=== PATIENT | female | born 1945 | race Caucasian/White ===

== ENCOUNTER 2024-09-28 06:29 | Emergency (ER) | payer OTHER ==
[~2024-09-28] VITALS: Ht 160 cm; Wt 72.7 kg
--- NOTE | 2024-09-28 07:12 | ED.PDOC ---
Teresat. trauma (HPI) HPI Comments 78 y.o female with PMHx of Dementia, HLD and AFIB, presents to the ED via EMS s/p mechanical slip and fall coming out of the restroom this morning. Patient landed on her buttocks, with more pressure leaning to her right hip. EMS reports patient was unable to bear weight to right leg and has positive shortening to tight leg. Patient is alert and oriented to self and others which is her baseline. Chief Complaint: Fall Injury Time Seen by MD: 06:43 Reviewed notes: Nurses Notes, Commercial Maintenance Technician Notes, Medications, Allergies Allergies: Coded Allergies: NO KNOWN ALLERGIES (Unverified , 09/09/13) Information Source: Emergency Med Personnel Mode of Arrival: EMS Severity: Moderate Timing: Hours Duration: Since onset Location: (R) Hip Location of laceration: None Mechanism: Fall Associated signs and symtoms: Other Past Medical History PAST MEDICAL HISTORY: AFIB, Arthritis, CHF, Dementia Surgical History: Denies all surgeries STANDARDS ANALYST History: No Pertinent STANDARDS ANALYST History Family History Family History: Unknown Social History Smoker: Non-Smoker Alcohol: Denies ETOH Use Drugs: Denies Drug Use Lives In: Home Unable to Obtain due to: Dementia Physical Exam General Appearance: Moderate Distress HEENT: Normal ENT Inspection, Pharynx Normal, TMs Normal Neck: Full Range of Motion, Non-Tender, Normal, Normal Inspection Respiratory: Chest Non-Tender, Lungs Clear, No Accessory Muscle Use, No Respiratory Distress, Normal Breath Sounds Cardiovascular: Irregular, No Edema, No JVD, No Murmur, No Gallop, Normal Peripheral Pulses Breast Exam: Deferred Gastrointestinal: No Organomegaly, Non Tender, No Pulsatile Mass, Normal Bowel Sounds, Soft Genitalia: Deferred Pelvic: Deferred Rectal: Deferred Extremities: Decreased range of motion (Bilateral right extremity) Musculoskeletal : Apperance: Normal Neurologic: Alert (Baseline) Cerebellar Function: NOT DONE Reflexes: NOT DONE Skin: Normal Color Peripheral Pulses: 3+ Radial (R), 3+ Radial (L) Lymphatic: No Adenopathy Was a procedure done? Was a procedure done?: No Differential Diagnosis Multiple Trauma: Fractures, Contusion X-Ray, Labs, Meds, VS Vital Signs Date Time Temp Pulse Resp B/P (MAP) Pulse Ox O2 Delivery O2 Flow Rate FiO2 09/28/24 16:12 98.0 94 16 98/51 (67) 94 98.0 09/28/24 15:20 103 18 108/68 09/28/24 13:38 101 16 120/60 09/28/24 10:01 86 16 120/66 09/28/24 09:10 85 18 143/72 09/28/24 08:58 98.1 85 18 143/72 (95) 95 98.1 09/28/24 08:58 85 18 95 Room Air* 0 21 09/28/24 06:37 95 09/28/24 06:33 98.2 100 18 128/80 (96) 98 Lab Test 09/28/24 08:30 09/28/24 07:43 Range/Units Urine Color Light-yellow Yellow Urine Clarity Clear Clear Urine pH 5.5 5.0-9.0 Urine Specific [place] 1.007 1.001-1.035 Urine Protein Negative Negative Urine Ketones Negative Negative Urine Blood Negative Negative /uL Urine Nitrite Negative Negative Urine Bilirubin Negative Negative Urine Urobilinogen Normal Negative mg/dL Urine Leukocyte Esterase Negative Negative /uL Urine RBC <1 0 - 4 /hpf Urine WBC <1 0 - 5 /hpf Urine Squamous Epithelial Cells None seen <5 /hpf Urine Bacteria None seen None Seen /hpf Urine Glucose Normal Normal mg/dL White Blood Count 10.1 4.4-10.8 10^3/uL Red Blood Count 4.40 4.0-5.20 10^6/uL Hemoglobin 13.8 12.2-16.2 g/dL Hematocrit 41.2 36.0-46.0 % Mean Corpuscular Volume 93.7 80.0-100.0 fL Mean Corpuscular Hemoglobin 31.5 28.0-32.0 pg Mean Corpuscular Hemoglobin Concent 33.6 32.0-36.0 g/dL Red Cell Distribution Width 13.3 11.8-14.3 % Platelet Count 316 140-450 10^3/uL Mean Platelet Volume 7.0 6.9-10.8 fL Neutrophils (%) (Auto) 76.3 37.0-80.0 % Lymphocytes (%) (Auto) 16.8 10.0-50.0 % Monocytes (%) (Auto) 5.9 0.0-12.0 % Eosinophils (%) (Auto) 0.7 0.0-7.0 % Basophils (%) (Auto) 0.3 0.0-2.0 % Neutrophils # (Auto) 7.7 1.6-8.6 10 ^3/uL Lymphocytes # (Auto) 1.7 0.4-5.4 10 ^3/uL Monocytes # (Auto) 0.6 0-1.3 10 ^3/uL Eosinophils # (Auto) 0.1 0-0.8 10 ^3/uL Basophils # (Auto) 0 0-0.2 10 ^3/uL Nucleated Red Blood Cells 0.0 % Sodium Level 140 136-145 mmol/L Potassium Level 3.5 3.5-5.1 mmol/L Chloride Level 106 98-107 mmol/L Carbon Dioxide Level 27 20-31 mmol/L Anion Gap 7 5-15 Blood Urea Nitrogen 10 9-23 mg/dL Creatinine 0.89 0.550-1.02 mg/dL Glomerular Filtration Rate Calc 66 >90 mL/min BUN/Creatinine Ratio 11.2 10.0-20.0 Serum Glucose 108 H 74-106 mg/dL Calcium Level 9.8 8.7-10.4 mg/dL Troponin I High Sensitivity 3 L </=34 ng/L Current Medications Medications (Trade) Dose Ordered Sig/Mirian Route Start Time Stop Time Status Last Admin Morphine Sulfate 2 mg ONCE ONCE IV 09/28/24 09:00 09/28/24 09:01 DC 09/28/24 09:10 Ondansetron HCl (Zofran) 4 mg ONCE ONCE IV 09/28/24 09:00 09/28/24 09:01 DC 09/28/24 09:11 Morphine Sulfate 2 mg ONCE ONCE IV 09/28/24 13:30 09/28/24 13:31 DC 09/28/24 13:38 Ondansetron HCl (Zofran) 4 mg ONCE ONCE IV 09/28/24 13:30 09/28/24 13:31 DC 09/28/24 13:39 Patient alert. Complaining of right side hip pain. Status post fall. Vitals stable. History of dementia. Answering simple questions. History was given by paramedics. EKG reviewed shows irregular rhythm atrial fibrillation. Explained to the patient. Continue cardiac monitoring. [id number]. Time of 1ST Reevaluation: 07:10 Reevaluation 1ST: Unchanged Patient Education/Counseling: Other (patient has history of dementia) Family Education/Counseling: No Family Present Additional Information I reviewed the following notes from patient's past medical encounters: None recently The following tests were ordered, and results were reviewed by me: EKG x2, CMP, CBC, UA, X ray, Troponin x 1 Additional Information was gathered from interviewing the following independent historians: (Family, Other Providers, EMT): Paramedics I reviewed and agreed with the following test results read by other providers: Pelvis X ray I discussed treatment and results with medical personnel XY PELVIS AP HISTORY: fall TECHNICAL DATA: Frontal view was obtained of the pelvis. COMPARISON: None FINDINGS: There is acute angulated right femoral neck fracture. Right femoral head remains articulated with the acetabulum. Left hip joint space narrowing. IMPRESSION: 1. Acute right femoral neck fracture. Departure 1 Departure Time of Disposition: 07:32 Impression: Primary Impression: Atrial fibrillation Additional Impression: Femoral fracture Qualified Codes: S72.91XA - Unspecified fracture of right femur, initial encounter for closed fracture Disposition: ADMITTED INPATIENT Admit to: Med Surg Condition: Guarded Critical Care Note Critical Care Time?: No Stability Stability form required: No I personally scribed for CHANDLER TIRADO MD ([email or web address]) on 09/28/24 at 07:12. Electronically submitted by Ruth Grover ([facility]). I personally scribed for CHANDLER TIRADO MD ([email or web address]) on 09/28/24 at 08:34. Electronically submitted by Ruth Grover ([facility]). CHANDLER TIRADO MD Sep 28, 2024 07:12
--- NOTE | 2024-09-28 07:37 | DVH ---
XY PELVIS AP HISTORY: fall TECHNICAL DATA: Frontal view was obtained of the pelvis. COMPARISON: None FINDINGS: There is acute angulated right femoral neck fracture. Right femoral head remains articulated with the acetabulum. Left hip joint space narrowing. IMPRESSION: 1. Acute right femoral neck fracture.
[2024-09-28 07:56] LABS: Basophils # (auto) 0 10 ^3/uL (0-0.2); Basophils % (auto) 0.3 % (0.0-2.0); Eosinophils # (auto) 0.1 10 ^3/uL (0-0.8); Eosinophils % (auto) 0.7 % (0.0-7.0); Hematocrit 41.2 % (36.0-46.0); Hemoglobin 13.8 g/dL (12.2-16.2); Lymphocytes # (auto) 1.7 10 ^3/uL (0.4-5.4); Lymphocytes % (auto) 16.8 % (10.0-50.0); Mean Corpuscular Hemoglobin 31.5 pg (28.0-32.0); Mean Corpuscular Hgb Conc. 33.6 g/dL (32.0-36.0); Mean Corpuscular Volume 93.7 fL (80.0-100.0); Monocytes # (auto) 0.6 10 ^3/uL (0-1.3); Monocytes % (auto) 5.9 % (0.0-12.0); Neutrophils # (auto) 7.7 10 ^3/uL (1.6-8.6); Neutrophils % (auto) 76.3 % (37.0-80.0); Platelet Count (auto) 316 10^3/uL (140-450); Red Cell Distribution Width 13.3 % (11.8-14.3); White Blood Cell 10.1 10^3/uL (4.4-10.8)
[2024-09-28 08:17] LABS: Chloride 106 mmol/L (98-107); Sodium 140 mmol/L (136-145)
[2024-09-28 08:18] LABS: Anion Gap 7 (5-15); Calcium 9.8 mg/dL (8.7-10.4); Carbon Dioxide 27 mmol/L (20-31)
[2024-09-28 08:23] LABS: BUN/Creatinine Ratio 11.2 (10.0-20.0); Blood Urea Nitrogen 10 mg/dL (9-23)
[2024-09-28 08:38] LABS: Urine Bacteria None Seen /hpf (None Seen)
[2024-09-28 08:44] LABS: Glucose 108 mg/dL (74-106); Potassium 3.5 mmol/L (3.5-5.1)
[2024-09-28 08:47] LABS: Urine Blood Negative /uL (Negative); Urine Clarity Clear (Clear); Urine Color Light-Yellow (Yellow); Urine Protein, UAD Negative (Negative); Urine Specific Gravity 1.007 (1.001-1.035); Urine Squamous Epithelial Cell None Seen /hpf (<5); Urine Urobilinogen Normal (Negative); Urine WBC <1 /hpf (0 - 5); Urine pH 5.5 (5.0-9.0)
[2024-09-28 08:58] VITALS: PULSE 85; RESP 18; O2SAT 95
[2024-09-28] MEDS: MORPHINE SULFATE INJ 2 MG/ml SYRG IV ONE ×2 (09:10→13:38)
[2024-09-28] MEDS: ONDANSETRON HCL 4 MG/2 ML VIAL IV ONE ×2 (09:11→13:39)
[2024-09-28 16:12] VITALS: BP 98/51; PULSE 94; RESP 16; TEMP 98; O2SAT 94
[2024-09-28] MEDS ORDERED: METOPROLOL TARTRATE 1MG/1ML-5ML VIAL IV ONE (17:43)
--- NOTE | 2024-09-28 18:55 | ECG ---
[facility] Test Date: 2024-09-28 Test Time: 17:30:34 Pat Name: KENY WEAVER Department: ER Room: Gender: F Explosive Ordnance Manager: LORI : 1945 Requested By: EMERGENCY EMERGENCY Order Number: [id number] Reading MD: Measurements Intervals [place] Rate: 149 P: 0 OK: 0 QRS: 43 QRSD: 77 T: 38 QT: 289 QTc: 455 Interpretive Statements Atrial fibrillation with rapid V-rate Ventricular premature complex Repolarization abnormality, prob rate related Please click the below link to view image of tracing.
--- NOTE | 2024-09-30 13:56 | ECG ---
[facility] Test Date: 2024-09-28 Test Time: 06:37:49 Pat Name: KENY WEAVER Department: ed Room: Gender: F Supply Chain Buyer: merritt : 1945 Requested By: EMERGENCY EMERGENCY Order Number: [id number] Reading MD: Rafael Ramirez Measurements Intervals [place] Rate: 95 P: -57 [place]: 106 QRS: 34 QRSD: 88 T: 44 QT: 346 QTc: 435 Interpretive Statements Atrial fibrillation with controlled ventricular response Short [place] interval Low voltage, precordial leads Borderline T abnormalities, anterior leads Electronically Signed On 10-01-2024 18:16:26 PST by Rafael Ramirez Please click the below link to view image of tracing.
== END 2024-09-28 17:18 | disposition admitted as inpatient to this hospital (09) ==
LOC: ER 06:29 → EDBD 06:29 → ER 17:18
DX: S72.001A Fracture of unspecified part of neck of right femur, initial encounter for closed fracture (principal); I48.91 Unspecified atrial fibrillation; I50.9 Heart failure, unspecified; M19.90 Unspecified osteoarthritis, unspecified site; F03.90 Unspecified dementia, unspecified severity, without behavioral disturbance, psychotic disturbance, mood disturbance, and anxiety; W18.11XA Fall from or off toilet without subsequent striking against object, initial encounter; Y93.89 Activity, other specified; Y92.89 Other specified places as the place of occurrence of the external cause; Y99.8 Other external cause status
CPT/HCPCS: 36415; 72170; 80048; 81001; 84484; 85025; 93005; 96374; 96375; 96376; 99285; J2270; J2405

== ENCOUNTER 2024-09-28 17:16 | Emergency (ER) | payer OTHER ==
[~2024-09-28] VITALS: Ht 160 cm; Wt 77.2 kg
--- NOTE | 2024-09-28 18:03 | ED.PDOC ---
HPI Comments 78 y.o female with PMH of Dementia, AFIB presents to the ED via EMS for an evaluation of palpitations. EMS reports patient was being transported to another facility s/p hip fracture diagnose this morning at this ED, in route patient's 12 lead read AFIB with RVR. Patient complained of palpitations with no chest pain or SOB. Patient was brought back for stability purposes. Chief Complaint: Palpitations Time Seen by MD: 18:00 Reviewed Notes: Nurses Notes, Assistant Store Manager Notes, Medications, Allergies Allergies: Coded Allergies: NO KNOWN ALLERGIES (Unverified , 09/09/13) Information Source: Patient, Emergency Med Personnel Mode of Arrival: EMS Severity: Moderate Timing: Hours Duration: Since onset Prehospital treatment: 12 Lead EKG, Director Cloud Transformation Onset: At Rest Cardiac Risk Factors: Hyperlipidemia PE Risk Factors: None History of: Other (AFib) Associated Signs and Symptoms: Palpitations Past Medical History PAST MEDICAL HISTORY: AFIB, Arthritis, CHF, Dementia Surgical History: Denies all surgeries HAND CHAIN MAKER History: No Pertinent HAND CHAIN MAKER History Family History Family History: Unknown Social History Smoker: Non-Smoker Alcohol: Denies ETOH Use Drugs: Denies Drug Use Lives In: Home Constitutional: denies: chills, diaphoresis, fatigue, fever, malaise, sweats, weakness, others EENTM: denies: blurred vision, double vision, ear bleeding, ear discharge, ear drainage, ear pain, ear ringing, eye pain, eye redness, hearing loss, mouth pain, mouth swelling, nasal discharge, nose bleeding, nose congestion, nose pain, photophobia, tearing, throat pain, throat swelling, voice changes, others Respiratory: denies: cough, hemoptysis, orthopnea, SOB at rest, shortness of breath, SOB with excertion, stridor, wheezing, others Cardiovascular: denies: chest pain, dizzy spells, diaphoresis, Dyspnea on exertion, edema, irregular heart beat, left arm pain, lightheadedness, palpitations, PND, syncope, others Gastrointestinal: denies: abdomen distended, abdominal pain, blood streaked bowels, constipated, diarrhea, dysphagia, difficulty swallowing, hematemesis, melena, nausea, poor appetite, poor fluid intake, rectal bleeding, rectal pain, vomiting, others Genitourinary: denies: abnormal vagina bleeding, burning, dyspareunia, dysuria, flank pain, frequency, hematuria, incontinence, pain, , vagina discharge, urgency, others Neurological: denies: dizziness, fainting, headache, left sided numbness, left sided weakness, numbness, paresthesia, pre-existing deficit, right sided numbness, right sided weakness, seizure, speech problems, tingling, tremors, weakness, others Musculoskeletal: reports: others (Right hip pain due to fracture of femoral neck); denies: back pain, gout, joint pain, joint swelling, muscle pain, muscle stiffness, neck pain Integumetry: denies: bruises, change in color, change in hair/nails, dryness, laceration, lesions, lumps, rash, wounds, others Allergic/Immunocompromised: denies: Difficulty Healing, Frequent Infections, Hives, Itching, others Hematologic/Lymphatic: denies: anemia, blood clots, easy bleeding, easy bruising, swollen glands, others Endocrine: denies: excessive hunger, excessive sweating, excessive thirst, excessive urination, flushing, intolerance to cold, intolerance to heat, unexplained weight gain, unexplained weight loss, others Psychiatric: denies: anxiety, bipolar disorder, depression, hopeless, panic disorder, schizophrenia, sleepless, suicidal, others Unable to Obtain due to: Dementia Physical Exam General Appearance: Mild Distress (Patient was mildly uncomfortable at time of evaluation.), Normal HEENT: Normal ENT Inspection, Pharynx Normal, TMs Normal Neck: Full Range of Motion, Non-Tender, Normal, Normal Inspection Respiratory: Chest Non-Tender, Lungs Clear, No Accessory Muscle Use, No Respiratory Distress, Normal Breath Sounds Cardiovascular: No Edema, No JVD, Normal Peripheral Pulses, Tachycardia, Other (Irregular irregular rate and rhythm) Breast Exam: Deferred Gastrointestinal: No Organomegaly, Non Tender, No Pulsatile Mass, Normal Bowel Sounds, Soft Genitalia: Deferred Pelvic: Deferred Rectal: Deferred Extremities: No calf tenderness, Normal capillary refill, Normal inspection, Normal range of motion, Non-tender, No pedal edema Neurologic: Alert, procedure tech II-XII nml as Tested, No Motor Deficits, Normal Affect, Normal Mood, No Sensory Deficits Cerebellar Function: Normal Reflexes: Normal Skin: Dry, Normal Color, Warm Lymphatic: No Adenopathy Was a procedure done? Was a procedure done?: No CP Differential Dx Differential Diagnosis: A-fib, Angina, Electrolyte Disorder, Other (Right femoral neck fracture) X-Ray, Labs, Meds, VS Vital Signs Date Time Temp Pulse Resp B/P (MAP) Pulse Ox O2 Delivery O2 Flow Rate FiO2 09/28/24 20:00 117 09/28/24 19:09 118 106/55 09/28/24 18:42 116 99/52 09/28/24 18:09 135 119/65 09/28/24 18:00 119 16 119/65 (83) 99 09/28/24 17:59 98.2 140 18 110/78 (89) 98 09/28/24 17:41 97.5 126 16 118/72 (87) 96 97.5 09/28/24 17:30 149 Lab Test 09/28/24 18:51 09/28/24 17:51 Range/Units Troponin I High Sensitivity < 3 L < 3 L </=34 ng/L White Blood Count 15.1 #H 4.4-10.8 10^3/uL Red Blood Count 4.02 4.0-5.20 10^6/uL Hemoglobin 12.4 12.2-16.2 g/dL Hematocrit 37.4 36.0-46.0 % Mean Corpuscular Volume 93.1 80.0-100.0 fL Mean Corpuscular Hemoglobin 30.9 28.0-32.0 pg Mean Corpuscular Hemoglobin Concent 33.2 32.0-36.0 g/dL Red Cell Distribution Width 13.5 11.8-14.3 % Platelet Count 344 140-450 10^3/uL Mean Platelet Volume 7.3 6.9-10.8 fL Neutrophils (%) (Auto) 84.7 H 37.0-80.0 % Lymphocytes (%) (Auto) 9.6 L 10.0-50.0 % Monocytes (%) (Auto) 5.5 0.0-12.0 % Eosinophils (%) (Auto) 0.0 0.0-7.0 % Basophils (%) (Auto) 0.2 0.0-2.0 % Neutrophils # (Auto) 12.8 H 1.6-8.6 10 ^3/uL Lymphocytes # (Auto) 1.4 0.4-5.4 10 ^3/uL Monocytes # (Auto) 0.8 0-1.3 10 ^3/uL Eosinophils # (Auto) 0 0-0.8 10 ^3/uL Basophils # (Auto) 0 0-0.2 10 ^3/uL Nucleated Red Blood Cells 0.0 % Sodium Level 140 136-145 mmol/L Potassium Level 4.3 3.5-5.1 mmol/L Chloride Level 107 98-107 mmol/L Carbon Dioxide Level 28 20-31 mmol/L Anion Gap 5 5-15 Blood Urea Nitrogen 12 9-23 mg/dL Creatinine 0.83 0.550-1.02 mg/dL Glomerular Filtration Rate Calc 72 >90 mL/min BUN/Creatinine Ratio 14.5 10.0-20.0 Serum Glucose 129 H 74-106 mg/dL Calcium Level 9.9 8.7-10.4 mg/dL Total Bilirubin 1.2 H 0.2-1.0 mg/dL Aspartate Amino Transferase (AST) 15 13-40 U/L Alanine Aminotransferase (ALT) 16 7-40 U/L Alkaline Phosphatase 89 46-116 U/L B-Type Natriuretic Peptide 205.08 0-100 pg/mL Total Protein 6.6 5.7-8.2 g/dL Albumin 4.0 3.2-4.8 g/dL Lipase 31 12-53 U/L Current Medications Medications (Trade) Dose Ordered Sig/Mirian Route Start Time Stop Time Status Last Admin Metoprolol Tartrate (Lopressor) 5 mg ONCE ONCE IV 09/28/24 17:45 09/28/24 17:46 DC 09/28/24 18:09 Metoprolol Tartrate (Lopressor) 5 mg ONCE ONCE IV 09/28/24 18:30 09/28/24 18:31 DC 09/28/24 18:42 X-Ray, Labs, Meds, VS Comment All studies performed the ED were evaluated by me personally. Serum laboratories revealed a leukocytosis of 15.1. EKG revealed a atrial fibrillation with a rapid ventricular rate of 149. Ventricular premature comp lexes as well as repolarization abnormality. Maybe QT interval was 289. Patient was given two rounds of metoprolol 5 mg to aid in her AFib event. Heart rate reduced to 80, but continued to found between 80 and 110. Patient's blood pressure reduced to a low-level and therefore, additional intervention was not utilized. Patient was stable and comfortable. I spoke with Dr. Martin at [facility]. Advised him of the initial injury and transfer as well as the returned to our facility for the AFib management. He was able to confirm transferred to [facility] and therefore, patient will be transferred tonight. Authorization number [id number]. Time of 1ST Reevaluation: 00:04 Reevaluation 1ST: Improved Consultation: PCP, Cardiology, Other (Orthopedist) Patient Education/Counseling: Diagnosis, Treatment, Other Family Education/Counseling: Diagnosis, Treatment, No Family Present Departure 1 Departure Time of Disposition: 00:05 Impression: Primary Impression: Atrial fibrillation Additional Impression: Femoral neck fracture Disposition: 02 SHORT TERM HOSPITAL Condition: Stable Discharged With: Self Critical Care Note Critical Care Time?: No Stability Stability form required: No Heart Score Heart Score: Heart Score Response (Comments) Value History Slightly Suspicious 0 EKG Repolarization Disturb 1 Age >65 2 Risk Factors >3 or Hx ASHD 2 Troponin Normal limit 0 Total 5 I personally scribed for MARK ARANDA PAC ([email or web address]) on 09/28/24 at 18:03. Electronically submitted by Ruth Grover ([facility]). MARK ARANDA PAC Sep 28, 2024 18:03
[2024-09-28] MEDS: METOPROLOL TARTRATE 1MG/1ML-5ML VIAL IV ONE ×2 (18:09→18:42)
[2024-09-28] MEDS: dilTIAZem 25 MG/5 ML VIAL IV ONE (18:09)
[2024-09-28 18:32] LABS: Basophils # (auto) 0 10 ^3/uL (0-0.2); Basophils % (auto) 0.2 % (0.0-2.0); Eosinophils # (auto) 0 10 ^3/uL (0-0.8); Hematocrit 37.4 % (36.0-46.0); Hemoglobin 12.4 g/dL (12.2-16.2); Lymphocytes # (auto) 1.4 10 ^3/uL (0.4-5.4); Lymphocytes % (auto) 9.6 % (10.0-50.0); Mean Corpuscular Hemoglobin 30.9 pg (28.0-32.0); Mean Corpuscular Hgb Conc. 33.2 g/dL (32.0-36.0); Mean Corpuscular Volume 93.1 fL (80.0-100.0); Monocytes # (auto) 0.8 10 ^3/uL (0-1.3); Monocytes % (auto) 5.5 % (0.0-12.0); Neutrophils # (auto) 12.8 10 ^3/uL (1.6-8.6); Neutrophils % (auto) 84.7 % (37.0-80.0); Platelet Count (auto) 344 10^3/uL (140-450); Red Blood Cells 4.02 10^6/uL (4.0-5.20); Red Cell Distribution Width 13.5 % (11.8-14.3); White Blood Cell 15.1 10^3/uL (4.4-10.8)
[2024-09-28 18:45] LABS: Alanine Aminotransferase 16 U/L (7-40); Alkaline Phosphatase 89 U/L (46-116); Anion Gap 5 (5-15); Aspartate Aminotransferase 15 U/L (13-40); Calcium 9.9 mg/dL (8.7-10.4); Carbon Dioxide 28 mmol/L (20-31); Chloride 107 mmol/L (98-107); Lipase 31 U/L (12-53); Potassium 4.3 mmol/L (3.5-5.1); Sodium 140 mmol/L (136-145)
[2024-09-28 18:46] LABS: Bilirubin, Total 1.2 mg/dL (0.2-1.0); Total Protein 6.6 g/dL (5.7-8.2)
[2024-09-28 18:49] LABS: Glucose 129 mg/dL (74-106)
[2024-09-28 18:59] LABS: BUN/Creatinine Ratio 14.5 (10.0-20.0); Blood Urea Nitrogen 12 mg/dL (9-23)
[2024-09-28 19:30] VITALS: PULSE 112; RESP 11; O2SAT 100
[2024-09-29 03:03] VITALS: BP 118/55; PULSE 121; RESP 17; TEMP 97.7; O2SAT 97
== END 2024-09-28 21:16 | disposition short-term general hospital (02) ==
LOC: ER 17:16 → EDBD 17:16 → ER 21:16
DX: S72.091A Other fracture of head and neck of right femur, initial encounter for closed fracture (principal); I48.91 Unspecified atrial fibrillation; R06.02 Shortness of breath; F03.90 Unspecified dementia, unspecified severity, without behavioral disturbance, psychotic disturbance, mood disturbance, and anxiety; I50.9 Heart failure, unspecified; M19.90 Unspecified osteoarthritis, unspecified site; X58.XXXA Exposure to other specified factors, initial encounter; Y93.89 Activity, other specified; Y92.89 Other specified places as the place of occurrence of the external cause; Y99.8 Other external cause status
CPT/HCPCS: 36415; 80053; 83690; 83880; 84484; 85025; 96374; 96376